=== PATIENT | male | born 1980 | race Caucasian/White ===

== ENCOUNTER → 2016-11-18 | Emergency (ER) | payer MEDICAID ==
[~2016-11-18] VITALS: Ht 172.7 cm; Wt 86.2 kg
[~2016-11-18] MED LIST: FLEXERIL10 MG PO; FLOMAX 0.4MG C0.4 MG PO; LISINOPRIL 10MG10 MG PO; MINOCYCLINE HC100 M1 PO; NOMEDS XX; OXYCODONE5 MG PO; PREDNISONE 20MG20 MG PO
[2016-11-18 10:56] VITALS: BP 171/101
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
[2016-11-18 12:10] LABS: HEMOGLOBIN 13.6 g/dL (14.1-18.0); LYMPH # 0.7 K/mm3 (0.7-4.5); LYMPH % 9.3 % (10-50)
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
--- OUTSIDE RECORDS SUMMARY | 2016-11-18 12:23 | External Medical Summary Rpt ---
Author Author , Organization [employer] Address Unknown Phone Unavailable Care Team Providers Care Lead Retail Sales Associate Name Role Phone NED MAT, Unavailable Unavailable [facility] Unavailable Unavailable HOSPITAL, [facility] Unavailable Unavailable [facility], Unavailable Unavailable [facility] Unavailable Unavailable INC, [facility] FRYMAN EUG, FRYMAN Unavailable Unavailable EUG ERICK SUKUMAR, ERICK Unavailable Unavailable SUKUMAR ANJEL RHO, ANJEL Unavailable Unavailable RHO LÓPEZ MELISSA, LÓPEZ Unavailable Unavailable MELISSA [facility] Unavailable Unavailable INC, [facility] Unavailable Unavailable HOSPITAL P, [facility] H[facility]PITAL P [facility], [facility]available Unavailable [facility] Unavailable Unavailable IMAGING ASS, [facility] Unavailable Unavailable [facility], [facility] Unavailable Unavailable [facility], [facility] Unavailable Unavailable INC., [facility]. [facility], Unavailable Unavailable PLLC, [facility] [...] Unavailable MEDICAL SP, [facility] Unavailable Unavailable Associates, [facility], [facility] EMELINA TRA, Unavailable Unavailable EMELINA TRA [facility] Unavailable Unavailable PROFESSIO, [facility] Purpose Continuity of Care Document - 10-07-2014 through 2016 Problems Code Diagnosis DOS Provider Status [id number] OTHER CHEST 09-25-2016 [facility] PAIN RADIOLOGY J449 CHRONIC 02-20-2016 [facility] DISEASE UNS F101FPC OTHER 02-20-2016 [facility] SPECIFIED N EMERGENCY INJURIES PHYSI HEAD INITIAL ENCOUNTER [id number] STRIKING 02-20-2016 [facility] AGAINST/STR N EMERGENCY UCK OTH PHYSI OBJECTS INITIAL ENC Z049 ENCOUNTER 02-20-2016 [facility] EXAMINATION [facility] N FOR UNS REASON Z720 TOBACCO USE 02-20-2016 [facility] Z882 ALLERGY 02-20-2016 [place] [facility] TO [facility] S STATUS [id number] PAIN IN 10-12-2015 [facility] [place] RIGHT ANKLE RADIOLOGY [id number] SPRAIN 10-12-2015 [facility] UNSPEC N EMERGENCY LIGAMENT PHYSI ROGHT ANKLE INITIAL ENC Y9389 ACTIVITY 10-12-2015 [facility] OTHER N EMERGENCY SPECIFIED PHYSI R05 COUGH 08-02-2015 [facility] [id number] PAIN IN 06-22-2015 [facility] [place] LEFT ANKLE RADIOLOGY [id number] SPRAIN UNS 06-22-2015 [facility] INITIAL ENCOUNTER G44161 PERSONAL 06-22-2015 [facility] HISTORY OF [facility] DEPENDENCE Z885 ALLERGY 06-22-2015 [place] [facility] TO [facility] AGENT STATUS Z889 ALLERGY 06-22-2015 [place] STATUS U[facility] BIOLOG SUBSTANC STS I10 ESSENTIAL 06-14-2015 [facility] HYPERTENSIO INC N J387 OTHER 06-14-2015 [facility] DISEASES OF [facility] LARYNX INC S95948 UNSPECIFIED 06-14-2015 [facility] UNCOMPLICAT INC ED 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[facility], APHTHAE [facility] L989 DISORDER 06-14-2015 [facility] THE SKIN & PHYSICIANS, SUBCUTANEOU [facility] S TISSUE UNS Z539 PROCEDURE & 06-14-2015 [facility] TREATMENT [facility] NOT CARRIED HOSPITAL OUT UNS REASON N202 CALCULUS OF 04-15-2015 [facility] CALCULUS OF URETER R109 UNSPECIFIED 04-15-2015 [place] [facility] 46107 POISONING 03-07-2015 [facility] SP E8500 ACCIDENTAL 03-07-2015 [facility] [place] [address] SPINAL STEN 03-06-2015 [facility] LUMB REG JUMANA W/O CO METR NEUROGENIC CLAUDICATIO N 9779 POISONING 03-06-2015 [facility] UNSPECIFIED [facility]NA CO METR DRUG/MEDICI NAL SUBSTANCE 7231 CERVICALGIA 01-29-2015 PAV[facility]IS JOSE 7241 PAIN IN 01-29-2015 [facility] THORACIC JOSE SPINE 7391 NONALLOPATH 01-29-2015 [facility] IC LESION JOSE OF CERVICAL REGION NEC 7392 NONALLOPATH 01-29-2015 [facility] IC LESION JOSE OF THORACIC REGION NEC 7393 NONALLOPATH 01-29-2015 [facility] IC LESION JOSE OF LUMBAR REGION NEC 7242 LUMBAGO 01-07-2015 [facility] 7292 UNSPECIFIED 01-07-2015 [place] NEURALGIA OF NEURITIS [facility] RADICULITIS V571 OTHER 01-07-2015 [place] PHYSICAL OF THERAPY [facility] V1261 PERSONAL 12-30-2014 [place] HISTORY OF PNEUMONIA [facility] RECURRENT HOS V1301 PERSONAL 12-30-2014 [place] HISTORY OF OF URINARY [facility] CALCULI HOS V142 PERSONAL 12-30-2014 [place] HISTORY OF OF ALLERGY TO [facility] S V7262 LABORATORY 12-30-2014 [place] EXAM ORDER OF PART [facility] ROUTINE GEN HOS MED EXAM 4660 ACUTE 12-21-2014 [place] BRONCHITIS OF [facility] 4871 INFLUENZA 12-21-2014 [facility] WITH OTHER [place] RESPIRATORY CO METR MANIFESTATI ONS 76577 FEVER 12-21-2014 [facility] UNSPECIFIED JUMANA CO METR 7862 COUGH 12-21-2014 [facility] JUMANA CO METR 5920 CALCULUS OF 12-16-2014 [facility] 7880 RENAL COLIC 12-16-2014 [facility] 486 PNEUMONIA, 12-08-2014 [place] ORGANISM OF UNSPECIFIED [facility] 64113 ASTHMA, 12-08-2014 [place] UNSPECIFIED OF , [facility] UNSPEC[facility]IED [facility] STATUS 5589 OTH&UNSPEC 12-08-2014 [place] NONINFECTIO OF US [facility] ITIS&COLITI S V4579 OTHER 12-08-2014 [place] ACQUIRED OF ABSENCE OF [facility]GAN [facility]OS 4829 UNSPECIFIED 12-06-2014 [place] BACTERIAL OF PNEUMONIA [facility] 05493 NAUSEA WITH 12-06-2014 [facility] VOMITING JUMANA CO METR 28869 DIARRHEA 12-06-2014 [facility] JUMANA CO METR 88729 OTHER 12-06-2014 [facility] NONSPECIFIC Radiologica ABNORMAL l FINDING OF Associates LUNG FIELD 68457 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 OTHER HOS 7245 UNSPECIFIED 11-19-2014 [facility] V4576 ACQUIRED 10-20-2014 [facility] ORGAN, LUNG INC 7906 OTHER 10-15-2014 [facility] ABNORMAL [facility] BLOOD INC CHEMISTRY V771 SCREENING 10-15-2014 [facility] DIABETES INC MELLITUS 2859 UNSPECIFIED 10-07-2014 [facility] P 4019 UNSPECIFIED 10-07-2014 [facility] P N 8470 NECK SPRAIN 10-07-[address] [facility] P 8472 LUMBAR 10-07-2014 [facility] P Procedures Procedure DOS Code Location Performer Comment RADIOLOGI 14239 [facility] [place] SCALF C EXAM 7 RADIOLOGY CHEST 2 VIEWS FRONTAL&L ATERAL RADEX 79848 [facility] [place] LÓPEZ ANKLE 6 RADIOLOGY MELISSA COMPLETE MINIMUM 3 VIEWS THER 75167 KAT STEPHENS PROPH/DX 6 [facility] PUSH SINGLE/1S T SBST/DRUG THERAPEUT 60760 [facility] IC 6 [facility] IV PUSH EACH NEW DRUG RADEX 25268 [facility] [place] ANJEL ANKLE 5 RADIOLOGY RHO COMPLETE MINIMUM [address] [place] [address] [place] [facility] ABDOMEN & 5 MEDICAL ENID PELVIS IMAGING W/O ASS CONTRAST MATERIAL GROUND A0425 [facility] E E PER JUMANA DENNEY STATUTE CO METR CO METR MILE AMBULANCE A0429 [facility] SERVICE 5 E E BLS [facility] EMERGENCY CO METR CO METR TRANSPORT RADEX 60846 GEMS PAVELONIS SPINE 5 JOSE JOSE CERVICAL 2 OR 3 VIEWS RADEX 44596 [facility] PAVELONIS SPINE 5 JOSE JOSE LUMBOSACR AL 2/3 VIEWS APPL 90625 DAVID RABAGOS MODALITY 5 JOSE JOSE 1/> AREAS ELEC STIMJ UNATTENDE D CHIROPRAC 10355 [facility] GEMS TIC 5 JOSE JOSE MANIPULAT [place] SPINAL 1-2 REGIONS RADEX 86800 [facility] PAVCARLTONS SPINE 5 JOSE JOSE THORACIC 2 VIEWS THERAPEUT 73517 [facility] IC PX 1/> 5 Y OF Y OF AREAS [facility] EACH 15 E HOS E HOS MIN EXERCISES APPL 76168 [facility] MODALITY 5 Y OF Y OF 1/> AREAS [facility] ELEC E HOS E HOS STIMJ UNATTENDE D APPL 33349 [facility] MODALITY 5 Y OF Y OF 1/> AREAS [facility] E HOS E HOS ULTRASOUN D EA 15 MIN PHYSICAL 99112 [facility] THERAPY 5 Y OF Y OF EVALUATIO [facility] N E HOS E HOS COMPREHEN 62376 [facility] SIVE 5 Y OF Y OF METABOLIC [facility] [place] [address] [facility] INFUSION 5 Y OF Y OF HYDRATION [facility] INITIAL E HOS E HOS 31 MIN-1 HOUR GROUND A0425 [facility] MILEAGE 5 E E PER JUMANA RUTHERFORDERSON STATUTE CO METR CO METR MILE PRESSURIZ 92029 [facility] ED/NONPRE 5 Y OF Y OF SSURIZED [facility] INHALATIO E HOS E HOS N TREATMENT BLOOD 32245 [facility] COUNT 5 Y OF Y OF COMPLETE [facility] AUTO&AUTO E HOS E HOS DIFRNTL WBC AMBULANCE A0429 [facility] SERVICE 5 E E BLS JUMANA JUMANA EMERGENCY CO METR CO METR TRANSPORT RADIOLOGI 07956 [facility] EXAM 5 Y OF Y OF CHEST 2 [facility] VIEWS E HOS E HOS FRONTAL&[place] [address] [facility] TOMLINSONER RETROPERI 5 Radiologi TRA TONEAL marilyn REAL TIME Associate W/IMAGE s COMPLETE BLOOD 85129 [facility] COUNT 5 Y OF Y OF COMPLETE [facility] AUTO&AUTO E HOS E HOS DIFRNTL WBC INJECTION J1885 [facility]IVERSIT 5 Y OF Y OF KETOROLAC [facility] E HOS E HOS TROMETHAM INE PER 15 MG THER 01342 [facility] PROPH/DX 5 Y OF Y OF NJX IV [facility] PUSH E HOS E HOS SINGLE/1S T SBST/DRUG COMPREHEN 09205 [facility] SIVE 5 Y OF Y OF METABOLIC [facility] [place] [address] [facility] INFUSION 5 Y OF Y OF HYDRATION [facility] EACH E HOS E HOS ADDITIONA L HOUR URINALYSI 31535 [facility] S 5 Y OF Y OF MICROSCOP [facility] IC ONLY E HOS E HOS INJECTION J1885 [facility]IT 5 Y OF Y OF KETOROLAC [facility] E HOS E HOS TROMETHAM INE PER 15 MG URINALYSI 40207 [facility] S 5 Y OF Y OF MICROSCOP [facility] IC ONLY E HOS E HOS GROUND A0425 [facility] MILEAGE 5 E E PER [facility] STATUTE CO METR CO METR MILE RADIOLOGI 31112 [facility] C [facility]AM 5 Y OF Y OF CHEST 2 [facility] VIEWS E HOS E HOS FRONTAL&L ATERAL AMBULANCE A0429 [facility] SERVICE 5 E E BLS [facility] EMERGENCY CO METR CO METR TRANSPORT INJECTION J2765 [facility] 5 Y OF Y OF METOCLOPR ZULEMAYANICK [place] AMIDE HCL E HOS E HOS UP TO 10 MG INJECTION J1885 [facility] 5 Y OF Y OF KETOROLAC ZULEMAYANICK DE LEONLL E HOS E HOS TROMETHAM INE PER 15 MG GLUC BLD 01555 FAMILY APRIL PIRES GLUC MNTR 5 HEALTH DEV CENTE R CLEARED INC FDA SPEC HOME USE HEMOGLOBI 39221 FAMILY APRIL PIRES N 5 HEALTH GLYCOSYLA CENTE R ALEXA A1C INC INJECTION J2405 [facility] 5 Y OF Y OF ONDANSETR [place]ULEMAYANICK [place] ON HCL E [place] [address] [place] [address] [facility] ABDOMEN & 5 Y OF Y OF PELVIS JACKY [place] W/O E HOS E HOS CONTRAST MATERIAL THER 16605 [facility] PROPH/DX 5 Y OF Y OF NJX IV ZULEMAYANICK [place] PUSH E HOS E HOS SINGLE/1S T SBST/[place] [address] [facility] LIPASE 5 Y OF Y [place] [address] [facility] INFUSION 5 Y OF Y OF HYDRATION [place] EACH E HOS E HOS ADDITIONA L HOUR COMPREHEN 13573 [facility] SIVE 5 Y [facility] PAN[facility] E HOS E HOS THERAPEUT 91623 [facility] IC 5 Y OF Y OF INJECTION JACKY [place] IV PUSH E HOS E HOS EACH NEW DRUG BLOOD 94696 [facility] COUNT 5 Y OF Y OF COMPLETE [facility] AUTO&AUTO E HOS E HOS DIFRNTL WBC APPLICATI 61197 [facility] ON 5 [facility] MODALITY INC INC 1/> AREAS HOT/COLD PACKS THERAPEUT 57067 [facility] QUINTERO IC PX 1/> 5 [facility] AREAS INC INC EACH 15 MIN EXERCISES APPL 06344 [facility] MODALITY 5 [facility] 1/> AREAS INC INC ELEC STIMJ UNATTENDE D PHYSICAL 49204 [facility] THERAPY 5 [facility] EVALUATIO INC INC N BILIRUBIN 14862 [facility] DIRECT 5 [facility] INC INC COMPREHEN 68755 [facility] SIVE 5 [facility]OS[facility] METABOLIC INC INC PANEL COLLECTIO 06890 [facility] N VENOUS 5 [facility] BLOOD INC INC VENIPUNCT URE LIPID 77488 [facility] PANEL 5 [facility] INC INC HEMOGLOBI 26016 [facility] N 5 [facility]OS[facility] GLYCOSYLA INC INC ALEXA A1C BLOOD 96066 [facility] COUNT 5 [facility] COMPLETE INC INC AUTO&AUTO DIFRNTL WBC THERAPEUT 18222 [facility] IC 5 [facility] PROPHYLAC INC INC TIC/DX INJECTION SUBQ/IM Encounters Encounter Start End Date Code Location Performer Type Date EMERGENCY [facility] EMERGENC[facility] T VISIT PHYSI MODERATE SEVERITY HOSPITAL KAT - 6 6 [facility] T EMERGENCY 05626 KAT 6 6 [facility] T V[facility]IT LIMITED/M INOR PROB EMERGENCY 15053 [facility] 6 6 [facility] EMERGENCY T VISIT PHYSI HIGH/URGE NT SEVERITY EMERGENCY 23577 KAT 6 6 [facility] T VISIT LIMITED/M [facility] HOSPITAL KAT - 6 6 [facility] T HOSPITAL KAT - 5 5 [facility] T EMERGENCY 28953 KAT 5 5 [facility] T VISIT MODERATE [facility]VERITY HOSPITAL LEON - 5 5 [facility] 97926 AKT 5 5 [facility] T VISIT LIMITED/M INOR PROB EMERGENCY 49482 [facility] SUAREZ 5 5 PHYSICIAN SUKUMAR [facility] T VISIT MODERATE SEVERITY EMERGENCY 58454 [facility] 5 5 [facility] INC T VISIT LOW/MODER SEVERITY EMERGENCY 22482 [facility] 5 5 EMERG MAT [facility] MEDICAL T VISIT SP MODERATE SEVERITY HOSPITAL [facility] - 5 5 [facility] T EMERGENCY 03243 [facility] 5 5 [facility] INC[facility] T VISIT HIGH/URGE NT SEVERITY OFFICE 43656 PAVELONIS PAVCAROLONIS [facility] 5 5 JOSE JOSE T NEW 20 MINUTES HOSPITAL UNIVERSIT - 5 5 Y OF [place]PATIEN [place] [facility] HOS EMERGENCY 66262 UNIVERSIT 5 5 Y OF [facility] T VISIT E HOS LOW/MODER SEVERITY HOSPITAL UNIVERSIT - 5 5 Y OF [place]PATIEN [place] [facility] E HOS EMERGENCY 40934 [facility] 5 5 EMERGENCY TAD [facility] MEDICINE T VISIT HIGH/URGE NT SEVERITY HOSPITAL UNIVERSIT - 5 5 Y OF [place]EN [place] [facility] EMERGENCY 88341 UNIVERSIT 5 5 Y OF [facility] T VISIT E HOS MODERATE SEVERITY EMERGENCY 74219 UNIVERSIT 5 5 Y OF [facility] [place] T VISIT E HOS MODERATE SEVERITY HOSPITAL UNIVERSIT - 5 5 Y OF [facility]PATIEN [place] [facility] HOSPITAL UNIVERSIT - 5 5 Y OF [facility]EN [place] [facility] H[facility] EMERGENCY 75968 UNIVERSIT 5 5 Y OF [facility] T VISIT E HOS MODERATE SEVERITY HOSPITAL UNIVERSIT - 5 5 Y OF [place] [place] [facility] EMERGENCY 71892 UNIVERSIT 5 5 Y OF [facility] T VISIT E HOS MODERATE SEVERITY OFFICE 35898 [facility] OUT[facility] 5 5 HEALTH T [facility] 30 CENTE R MINUTES INC EMERGENCY 55455 UNIVERSIT 5 5 Y OF [facility] T VISIT E HOS MODERATE SEVERITY HOSPITAL UN[facility]ERSIT - 5 5 [facility] E HOS EMERGENCY 64332 [facility] NATHAN GLORIA DEPT 5 5 EMERGENCY VISIT MEDICINE HIGH SEVERITY& THREAT FUNJ OFFICE 55539 [facility] OUTPATIEN 5 5 PHYSICIAN EUG T VISIT S GROUP 10 MINUTES OFFICE 95899 [facility] OUTPATIEN 5 5 PHYSICIAN EUG T VISIT S GROUP 15 MINUTES HOSPITAL LEON - 5 5 [facility] OUTPATIEN [facility] LEON - 5 5 [facility] OUTPATIEN INC T EMERGENCY 20764 [facility] SUAREZ 5 5 [facility] T VISIT P LOW/MODER SEVERITY HOSPITAL LEON - 5 5 [facility] OUTPATIEN INC T EMERGENCY 93967 [facility] 5 5 [facility] T VISIT MODERATE SEVERITY
--- OUTSIDE RECORDS SUMMARY | 2016-11-18 12:23 | External Medical Summary Rpt ---
Author Author ARNEL Fernando, [employer] Organization [employer] Address Unknown Phone Unavailable
--- OUTSIDE RECORDS SUMMARY | 2016-11-18 12:23 | External Medical Summary Rpt ---
Demographics Preferred Language Tajik Marital Status Unknown Temple Affiliation Unknown Race Unknown Ethnic Group Unknown Author Author , Organization [employer] Address Unknown Phone Unavailable Purpose Continuity of Care Document - through 2016 Immunization No patient found.
--- OUTSIDE RECORDS SUMMARY | 2016-11-18 12:23 | External Medical Summary Rpt ---
Author Author , Organization [employer] Address Unknown Phone Unavailable Care Team Providers Care Digital Developer Name Role Phone NED MAT, Unavailable Unavailable [facility] Unavailable Unavailable HOSPITAL, [facility], Unavailable Unavailable [facility], Unavailable Unavailable [facility] Unavailable Unavailable INC, [facility] FRYMAN EUG, FRYMAN Unavailable Unavailable EUG ERICK SUKUMAR, ERICK Unavailable Unavailable SUKUMAR ANJEL RHO, ANJEL Unavailable Unavailable RHO LÓPEZ MELISSA, LÓPEZ Unavailable Unavailable MELISSA [facility] Unavailable Unavailable INC, [facility] Un[facility] Un[facility]PITAL P, [facility]available Unavailable [facility] Unavailable [facility]available IM[facility], [facility] Unavailable Unavailable [facility], [facility] Unavailable Unavailable [facility], [facility] Unavailable Unavailable INC., [facility], Unavailable Unavailable PLLC, [facility], [...] Radiological Unavailable Unavailable Associates, [facility] Unavailable [facility], [facility] EMELINA TRA, Unavailable Unavailable EMELINA TRA [facility] Unavailable Unavailable PROFESSIO, [facility] Purpose Continuity of Care Document - 10-07-2014 through 2016 Problems Code Diagnosis DOS Provider Status R0789 OTHER CHEST 09-25-2016 [facility] J449 CHRONIC 02-20-2016 [facility] DISEASE UNS N112NDH OTHER 02-20-2016 [facility] SPECIF[facility] N EMERGENCY INJURIES PHYSI HEAD INITIAL ENCOUNTER [id number] STRIKING 02-20-2016 [facility] AGAINST/STR N EMERGENCY UCK OTH PHYSI OBJECTS INITIAL ENC Z049 ENCOUNTER 02-20-2016 [facility] N FOR UNS REASON Z720 TOBACCO USE 02-20-2016 [facility] Z882 ALLERGY 02-20-2016 [place] STATUS TO [facility] STATUS [id number] PAIN IN 10-12-2015 [facility] [place] RIGHT ANKLE RADIOLOGY [id number] SPRAIN 10-12-2015 [facility] UNSPEC N EMERGENCY LIGAMENT PHYSI ROGHT ANKLE INITIAL ENC Y9389 ACTIVITY 10-12-2015 [facility] OTHER N EMERGENCY SPECIFIED PHYSI R05 COUGH 08-02-2015 [facility] [id number] PAIN IN 06-22-2015 [facility] [place] LEFT ANKLE RADIOLOGY [id number] SPRAIN UNS 06-22-2015 [facility] INITIAL ENCOUNTER 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 Z885 ALLERGY 06-22-2015 [place] STATUS TO [facility] AGENT STATUS Z889 ALLERGY 06-22-2015 [place] STATUS UNS [facility] BIOLOG SUBSTANC STS I10 ESSENTIAL 06-14-2015 [facility] HYPERTENSIO INC N J387 OTHER 06-14-2015 [facility] DISEASES OF [facility] LARYNX INC X50338 UNSPECIFIED 06-14-2015 [facility] UNCOMPLICAT INC ED 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[facility], APHTHAE [facility] L989 DISORDER 06-14-2015 [facility] SKIN & PHYSICI[facility], SUBCUTANEOU [facility] S TISSUE UNS Z539 PROCEDURE & 06-14-2015 [facility] T[facility] OUT UNS REASON N202 CALCULUS OF 04-15-2015 [facility] CALCULUS OF URETER R109 UNSPECIFIED 04-15-2015 [place] [facility] 71600 POISONING 03-07-2015 [facility] EMERG MEDICAL SP E8500 ACCIDENTAL 03-07-2015 [facility] [address] SPINAL STEN 03-06-2015 [facility] LUMB REG JUMANA W/O CO METR NEUROGENIC CLAUDICATIO N 9779 POISONING 03-06-2015 [facility] UNSPECIFIED JUMANA CO METR DRUG/MEDICI NAL SUBSTANCE 7231 CERVICALGIA 01-29-2015 PAVELONIS JOSE 7241 PAIN IN 01-29-2015 [facility] THORACIC JOSE SPINE 7391 NONALLOPATH 01-29-2015 P[facility]ONIS IC LESION JOSE OF CERVICAL REGION NEC 7392 NONALLOPATH 01-29-2015 P[facility]ONIS IC LESION JOSE OF THORACIC REGION NEC 7393 NONALLOPATH 01-29-2015 PAVELONIS IC LESION JOSE OF LUMBAR REGION NEC 7242 LUMBAGO 01-07-2015 [facility] 7292 UNSPECIFIED 01-07-2015 [place] NEURALGIA OF NEURITIS [facility] RADICULITIS V571 OTHER 01-07-2015 [place] PHYSICAL OF THERAPY [facility] V1261 PERSONAL 12-30-2014 [place] HISTORY OF PNEUMONIA [facility] RECURRENT HOS V1301 PERSONAL 12-30-2014 [place] HISTORY OF OF URINARY [facility] CALCULI HOS V142 PERSONAL 12-30-2014 [place] HISTORY OF OF ALLERGY TO [facility] SULFONAMIDE HOS S V7262 LABORATORY 12-30-2014 [place] EXAM ORDER OF PART [facility] ROUTINE GEN HOS MED EXAM 4660 ACUTE 12-21-2014 [place] BRONCHITIS OF [facility] 4871 INFLUENZA 12-21-2014 [facility] WITH OTHER [place] RESP[facility]AT[facility] CO METR MANIFESTATI ONS 11979 FEVER 12-21-2014 [facility] UNSPECIFIED JUMANA CO METR 7862 COUGH 12-21-2014 [facility] JUMANA CO METR 5920 CALCULUS OF 12-16-2014 [facility] 7880 RENAL COLIC 12-16-2014 [facility] 486 PNEUMONIA, 12-08-2014 [place] ORGANISM OF UNSPECIFIED [facility] 08152 ASTHMA, 12-08-2014 [place] UNSPECIFIED OF , [facility] UNSPECIFIED HOS STATUS 5589 OTH&UNSPEC 12-08-2014 [place] NONINFECTIO OF US [facility] GASTROENTER [facility]OS ITIS&COLITI S V4579 OTHER 12-08-2014 [place] ACQUIRED OF ABSENCE OF [facility] ORGAN HOS 4829 UNSPECIFIED 12-06-2014 [place] BACTERIAL OF PNEUMONIA [facility] 06147 NAUSEA WITH 12-06-2014 [facility] VOMITING JUMANA CO METR 35183 DIARRHEA 12-06-2014 [facility] JUMANA CO METR 93497 OTHER 12-06-2014 [facility] NONSPECIFIC Radiologica ABNORMAL l FINDING OF Associates LUNG FIELD 33793 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-02-2014 [facility] COMP TYPE CENTE R INC II/UNS TYPE UNCNTRL 75834 MIGRAINE 12-02-2014 [facility] UNSP W/O HEALTH INTRACT W/O CENTE R INC STATUS MIGRAINOSUS 4779 ALLERGIC 12-02-2014 [facility] RHINITIS HEALTH CAUSE YEMI R INC UNSPECIFIED 87635 EXTRINSIC 12-02-2014 [facility] ASTHMA, HEALTH UNSPECIFIED YEMI R INC 03198 ABDOMINAL 12-02-2014 [facility] PAIN OTHER RADIOLOGIC SPECIFIED PROFESSIO SITE 18323 IMPAIRED 12-02-2014 [facility] GLUCOSE YEMI R INC V4589 OTHER 12-01-2014 [facility] STATUS [facility] OTHER HOS 7245 UNSPECIFIED 11-19-2014 [facility] V4576 ACQUIRED 10-20-2014 [facility]ENCE [facility] ORGAN, LUNG INC 7906 OTHER 10-15-2014 [facility] ABNORMAL [facility] BLOOD INC CHEMISTRY V771 SCREENING 10-15-2014 [facility] DIABETES INC MELLITUS 2859 UNSPECIFIED 10-07-2014 [facility] P 4019 UNSPECIFIED 10-07-2014 [facility] P N 8470 NECK SPRAIN 10-07-2014 [facility] P 8472 LUMBAR 10-07-2014 [facility] P Procedures Procedure DOS Code Location Performer Comment RADIOLOGI 79997 [facility] [place] SCALF C EXAM 7 RADIOLOGY CHEST 2 VIEWS FRONTAL&L ATERAL RADEX 61514 [facility] [place] LÓPEZ ANKLE 6 RADIOLOGY MELISSA COMPLETE MINIMUM 3 VIEWS THER 62939 KAT STEPHENS PROPH/DX 6 [facility] PUSH SINGLE/1S T SBST/DRUG THERAPEUT 85786 [facility] 6 [facility] IV PUSH EACH NEW DRUG RADEX 59266 [facility] [place] ANJEL ANKLE 5 RADIOLOGY R[place] COMPLETE MIN[address] [place] [address] [place] ABDOMEN & 5 MEDICAL ENID PELVIS IMAGING W/O ASS CONTRAST MATERIAL GROUND A0425 [facility] E PER JUMANA DENNEY STATUTE CO METR CO METR MILE AMBULANCE A0429 [facility] SERVICE 5 E E BLS [facility] EMERGENCY CO METR CO METR TRANSPORT RADEX 42477 GEMS PAVELONIS SPINE 5 JOSE JOSE CERVICAL 2 OR 3 VIEWS RADEX 85231 [place] PAVELONIS SPINE 5 JOSE JOSE LUMBOSACR AL 2/3 VIEWS APPL 30848 DAVID RABAGOS MODALITY 5 JOSE JOSE 1/> AREAS ELEC STIMJ UNATTENDE D CHIROPRAC 26230 [facility] GEMS TIC 5 JOSE JOSE MANIPULAT [place] SPINAL 1-2 REGIONS RADEX 31011 [facility] P[facility] SPINE 5 JOSE JOSE THORACIC [address] V[address] [facility] IC PX 1/> 5 Y OF Y OF AREAS [facility] EACH 15 E HOS E HOS MIN EXERCISES APPL [address] [facility] MODALITY 5 Y OF Y OF 1/> AREAS [facility] ELEC E HOS E HOS STIMJ UNATTENDE D APPL 43443 [facility] MODALITY 5 Y OF Y OF 1/> AREAS [facility] E HOS E HOS ULTRASOUN D EA [address] [facility] THERAPY 5 Y OF Y OF EVALUATIO [facility] N E HOS E HOS COMPREHEN [address] [facility] SIVE 5 Y OF Y OF METABOLIC [facility] [place] [address] [facility] INFUSION 5 Y OF Y OF HYDRATION [facility] INITIAL E HOS E HOS 31 MIN-1 HOUR GROUND A0425 [facility] MILEAGE 5 E E PER JUMANA RUTHERFORDERSON STATUTE CO METR CO METR MILE PRESSURIZ [address] [facility] ED/NONPRE 5 Y OF Y OF SSURIZED [facility] INHALATIO E HOS E HOS N TREATMENT BLOOD [address] [facility] COUNT 5 Y OF Y OF COMPLETE [facility] AUTO&AUTO E HOS E HOS DIFRNTL WBC AMBULANCE A0429 [facility] SERVICE 5 E E BLS JUMANA JUMANA EMERGENCY CO METR CO METR TRANSPORT RADIOLOGI 09915 [facility] C EXAM 5 Y OF Y OF CHEST 2 [facility] VIEWS E HOS E HOS FRONTAL&[place] [address] CLARE TOMLINSONER RETROPERI 5 Radiologi TRA TONEAL marilyn REAL TIME Associate W/IMAGE s COMPLETE BLOOD [address] [facility] COUNT 5 Y OF Y OF COMPLETE [facility] AUTO&AUTO E HOS E HOS DIFRNTL WBC INJECTION J1885 [facility] 5 Y OF Y OF KETOROLAC [facility] E HOS E HOS TROMETHAM INE PER 15 MG THER [address] [facility] PROPH/DX 5 Y OF Y OF NJX IV [facility] PUSH E HOS E HOS SINGLE/1S T SBST/DRUG COMPREHEN [address] [facility] SIVE 5 Y OF Y OF METABOLIC [facility] [place] [address] [facility] INFUSION 5 Y OF Y OF HYDRATION [facility] EACH E HOS E HOS ADDITIONA L HOUR URINALYSI 22822 [facility] S 5 Y OF Y OF MICROSCOP [facility] IC ONLY E HOS E HOS INJECTION J1885 [facility] 5 Y OF Y OF KETOROLAC [facility] E HOS E HOS TROMETHAM INE PER 15 MG URINALYSI 31109 [facility] S 5 Y OF Y OF MICROSCOP [facility] IC ONLY E HOS E HOS GROUND A0425 [facility] MILEAGE 5 E E PER [facility] STATUTE CO METR CO METR MILE RADIOLOGI 68037 [facility] C EXAM 5 Y OF Y OF CHEST 2 [facility] VIEWS E HOS E HOS FRONTAL&L ATERAL AMBULANCE A0429 [facility] SERVICE 5 E E BLS [facility] EMERGENCY CO METR CO METR TRANSPORT INJECTION J2765 [facility] 5 Y OF Y OF METOCLOPR UZLEMAYANICK [place] AMIDE HCL E HOS E HOS UP TO 10 MG INJECTION J1885 [facility] 5 Y OF Y OF KETOROLAC ZULEMAYANICK DE LEONLL E HOS E HOS TROMETHAM INE PER 15 MG GLUC BLD 69892 FAMILY APRIL PIRES GLUC MNTR 5 HEALTH DEV CENTE R CLEARED INC FDA SPEC HOME USE HEMOGLOBI 00858 FAMILY APRIL PIRES N 5 HEALTH GLYCOSYLA CENTE R ALEXA A1C INC INJECTION J2405 [facility] 5 Y OF Y OF ONDANSETR ZULEMAYANICK [place] ON HCL E HOS [place] [address] [place] [address] [facility] ABDOMEN & 5 Y OF Y OF PELVIS JACKY R[place] W/O E HOS E HOS CONTRAST MATERIAL THER [address] [facility] PROPH/DX 5 Y OF Y OF NJX IV ZULEMAYANICK [place] PUSH E HOS E HOS SINGLE/1S T SBST/[place] [address] [facility] LIPASE 5 Y OF Y [place] [address] [facility] INFUSION 5 Y OF Y OF HYDRATION [place]MAY[place] EACH E HOS E HOS ADDITIONA L HOUR COMPREHEN 94725 [facility] SIVE 5 Y OF Y [facility]OL[facility] PANEL E HOS E HOS THERAPEUT 60236 [facility] IC 5 Y OF Y OF INJECTION JACKY RICO IV PUSH E HOS E HOS EACH NEW DRUG BLOOD 36081 [facility] COUNT 5 Y OF Y [facility]TE [facility] AUTO&AUTO E HOS E HOS DIFRNTL WBC APPLICATI 75411 [facility] ON 5 [facility] MODALITY INC INC 1/> AREAS HOT/COLD PACKS THERAPEUT 90266 [facility] QUINTERO IC PX 1/> 5 [facility] AREAS INC INC EACH 15 MIN EXERCISES APPL 98300 [facility] MODALITY 5 [facility] 1/> AREAS INC INC ELEC STIMJ UNATTENDE D PHYSICAL 56267 [facility] THERAPY 5 [facility] EVALUATIO INC INC N BILIRUBIN 30969 [facility] DIRECT 5 [facility] INC INC COMPREHEN 39961 [facility] SIVE 5 [facility] METABOLIC INC INC PANEL COLLECTIO 11263 [facility] N VENOUS 5 [facility] BLOOD INC INC VENIPUNCT URE LIPID 57904 [facility] PANEL 5 [facility] INC INC HEMOGLOBI 38483 LOEN QUINTERO N 5 [facility] GLYCOSYLA INC INC ALEXA A1C BLOOD 68030 [facility] COUNT 5 [facility] COMPLETE INC INC AUTO&AUTO DIFRNTL WBC THERAPEUT 75878 [facility] IC 5 [facility] PROPHYLAC INC INC TIC/DX INJECTION SUBQ/IM Encounters Encounter Start End Date Code Location Performer Type Date EMERGENCY 06873 [facility] 6 6 [facility] EMERGENCY T VISIT PHYSI MODERATE [facility]VERITY HOSPITAL KAT - 6 6 [facility] T EMERGENCY 89260 KAT 6 6 [facility] T [facility]ISIT LIMITED/M INOR PROB EMERGENCY 26338 [facility] 6 6 [facility] EMERGENCY T VISIT PHYSI HIGH/URGE NT SEVERITY EMERGENCY 00167 KAT 6 6 [facility] T [facility]ISIT LIMITED/M [facility]PITAL KAT - 6 6 [facility] HOSP[facility] KAT [facility] 5 5 [facility] T EMERGENCY 19909 KAT 5 5 [facility] T VISIT MODERATE [facility]VERITY HOSPITAL LEON - 5 5 [facility] T EMERGENCY 98831 KAT 5 5 [facility] T VISIT LIMITED/M INOR PROB EMERGENCY 94737 [facility] SUAREZ 5 5 PHYSICIAN SUKUMAR [facility] T VISIT MODERATE SEVERITY EMERGENCY 61209 [facility] 5 5 [facility] INC T VISIT LOW/MODER SEVERITY EMERGENCY 80457 [facility] 5 5 EMERG MAT [facility] MEDICAL T VISIT SP MODERATE SEVERITY HOSPITAL [place] [facility] 65916 [place] 5 5 [facility] T VISIT HIGH/URGE NT SEVERITY OFFICE 63040 [facility] 5 JOSE JOSE T NEW 20 MINUTES HOSPITAL UNIVERS[facility] - 5 5 [facility] [place] [place] [facility] EMERGENCY 38104 UN[facility] 5 5 Y OF [facility] V[facility] E HOS LOW/MODER SEVERITY HOSPITAL UNIVERSIT - 5 5 [facility] [place] [facility] EMERGENCY 90073 [facility] 5 5 EMERGENCY TAD [facility] MEDICINE T VISIT HIGH/URGE NT SEVERITY HOSPITAL UNIVERSIT - 5 5 [facility] [place] [facility] EMERGENCY 32260 UNIVERSIT 5 5 Y OF [facility] VISIT E HOS MODERATE SEVERITY EMERGENCY 26592 UNIVERSIT 5 5 Y OF [facility] VISIT E HOS MODERATE SEVERITY HOSPITAL UNIVERSIT - 5 5 Y [facility] [place] [facility]PITAL UNIVERSIT - 5 5 [facility] [place] [facility] EMERGENCY 00560 UNIVERSIT 5 5 Y OF [facility] VISIT E HOS MODERATE SEVERITY HOSPITAL UNIVERSIT - 5 5 Y OF [facility] [place] [facility] EMERGENCY 19738 UNIVERSIT 5 5 Y OF [facility] T VISIT E HOS MODERATE SEVERITY OFFICE 38485 [facility]ILY [facility] OUTPATIEN 5 5 HEALTH T NEW 30 CENTE R MINUTES INC EMERGENCY 99427 UNIVERSIT 5 5 Y OF [facility] T VISIT E HOS MODERATE SEVERITY HOSPITAL UN[facility]ERSIT - 5 5 [facility] EMERG[facility] 03452 [facility] NATHAN GLORIA DEPT 5 5 EMERGENCY VISIT MEDICINE HIGH SEVERITY& THREAT FUNJ OFFICE 94685 [facility] OUTPATIEN 5 5 PHYSICIAN EUG T VISIT S GROUP 10 MINUTES OFFICE 05734 [facility] OUTPATIEN 5 5 PHYSICIAN EUG T VISIT S GROUP 15 MINUTES HOSPITAL LEON - 5 5 [facility]IEN [facility]PITAL LEON - 5 5 [facility] OUTPATIEN INC T EMERGENCY 55843 [facility] SUAREZ 5 5 [facility] T VISIT P LOW/MODER SEVERITY HOSPITAL LEON - 5 5 [facility] OUTPATIEN INC T EMERGENCY 94906 [facility] 5 5 [facility] T VISIT MODERATE SEVERITY
--- OUTSIDE RECORDS SUMMARY | 2016-11-18 12:23 | External Medical Summary Rpt ---
Demographics Preferred Language Gibraltarian Marital Status Unknown Hinduism Affiliation Unknown Race Unknown Ethnic Group Unknown Author Author , Organization [employer] Address Unknown Phone Unavailable Purpose Continuity of Care Document - through 2016 Immunization No patient found.
[2016-11-18 12:28] LABS: NEUTROPHILS 85 % (42-76)
== END ==
LOC: ER 10:52
PROVIDERS: General Practice
DX: S20.212A Contusion of left front wall of thorax, initial encounter (principal); S20.211A Contusion of right front wall of thorax, initial encounter; S00.83XA Contusion of other part of head, initial encounter; S00.03XA Contusion of scalp, initial encounter; Y04.0XXA Assault by unarmed brawl or fight, initial encounter; Y92.89 Other specified places as the place of occurrence of the external cause; F17.290 Nicotine dependence, other tobacco product, uncomplicated; I10 Essential (primary) hypertension